=== PATIENT | female | born 1945 | race Caucasian/White ===

== ENCOUNTER → 2021-08-03 | Outpatient (CLI) | payer OTHER ==
[~2021-08-03] MED LIST: BONIVA; LEVFLO500 PO; OMEP20ER PO; PHENA100 PO; SULTRIDS PO
== END | disposition home or self-care (01) ==
LOC: LAB SHORT 13:32 → PLD 13:32 → LAB 13:32
DX: L28.1 Prurigo nodularis (principal)
CPT/HCPCS: 88305